=== PATIENT | female | born 1970 | race Hispanic/Latino ===

== ENCOUNTER 2018-02-25 15:39 | Emergency (ER) | payer OTHER ==
[~2018-02-25] VITALS: Ht 152.4 cm; Wt 68.0 kg
[2018-02-25] MEDS ORDERED: ASPIRIN 81 MG CHEW TAB PO ONE (16:00)
[2018-02-25 16:04] LABS: BASOPHILS # (AUTO) 0.1 (0.0-0.1); BASOPHILS % 0.9 % (0.0-1.0); EOSINOPHILS # (AUTO) 0.3 (0.0-0.4); EOSINOPHILS % 2.3 % (0.0-6.0); HEMOGLOBIN 12.4 g/dL (12.0-16.0); LYMPHOCYTES # (AUTO) 2.7 (1.0-3.2); LYMPHOCYTES % 22.6 % (18.0-39.1); MEAN CORPUSCULAR HEMOGLOBIN 28.5 pg (28-32); MEAN CORPUSCULAR HGB CONC 33.5 g/dL (31-35); MEAN CORPUSCULAR VOLUME 85.1 fL (81-99); MONOCYTES # (AUTO) 0.7 (0.2-0.8); MONOCYTES % 5.4 % (4.4-11.3); NEUTROPHILS # (AUTO) 8.2 (2.1-6.9); PLATELET COUNT 369 x10e3/uL (140-360); RED BLOOD COUNT 4.35 x10e6/uL (3.6-5.1); RED CELL DISTRIBUTION WIDTH 13.9 % (11.7-14.4)
[2018-02-25 16:14] LABS: INR 1.06
[2018-02-25 16:21] LABS: ALANINE AMINOTRANSFERASE 21 IU/L (0-55); ALBUMIN 3.9 g/dL (3.5-5.0); ALKALINE PHOSPHATASE 70 IU/L (40-150); ANION GAP 13.5 mmol/L (8-16); BLOOD UREA NITROGEN 9 mg/dL (7-26); BUN/CREATININE RATIO 12 (6-25); CALCIUM 9.3 mg/dL (8.4-10.2); CARBON DIOXIDE 22 mmol/L (22-29); CHLORIDE 106 mmol/L (98-107); CREATINE KINASE 147 IU/L (29-168); CREATININE, SERUM 0.76 mg/dL (0.57-1.11); EST GLOMERULAR FILTRATION RATE > 60 ML/MIN (60-); GLUCOSE 100 mg/dL (74-118); POTASSIUM 3.5 mmol/L (3.5-5.1); SODIUM 138 mmol/L (136-145)
--- NOTE | 2018-02-25 17:35 | Diagnostic Imaging Report ---
PROCEDURE: A single AP view of the chest. COMPARISON: None. INDICATIONS: CHEST PAIN FINDINGS: Lines/tubes: None. Lungs: The lungs are well inflated and clear. There is no evidence of pneumonia or pulmonary edema. Pleura: There is no pleural effusion or pneumothorax. Heart and mediastinum: The heart and the mediastinum are unremarkable. Bones: No acute bony abnormality. IMPRESSION: 1. No acute cardiopulmonary disease. Dictated by: Moises Birmingham M.D. on 02/25/2018 at 17:41 Electronically approved by: Moises Birmingham M.D. on 02/25/2018 at 17:41
[2018-02-25 18:17] LABS: CLARITY,URINE CLEAR (CLEAR); COLOR,URINE YELLOW (YELLOW)
[2018-02-25 18:18] LABS: BILIRUBIN,URINE NEGATIVE (NEGATIVE); KETONES,URINE NEGATIVE (NEGATIVE); LEUKOCYTE ESTERASE ,URINE NEGATIVE (NEGATIVE); NITRITE,URINE NEGATIVE (NEGATIVE); PROTEIN,URINE DIPSTICK NEGATIVE (NEGATIVE); URINE UROBILINOGEN 0.2 mg/dL (0.2 - 1)
[2018-02-25 18:26] LABS: EPITHELIAL CELLS,URINE FEW /LPF; MUCUS,URINE FEW (RARE); RBC,URINE 0-5 /HPF (0-5); WBC,URINE (MAN) 0-5 /HPF (0-5)
[2018-02-25] MEDS ORDERED: DIPHENHYDRAMINE HCL 25 MG CAP PO PRN (18:30)
[2018-02-25] MEDS ORDERED: DIPHENHYDRAMINE HCL INJ 50 MG/ML VIAL IV PRN (18:30)
[2018-02-25] MEDS ORDERED: ACETAMINOPHEN 325 MG TAB PO PRN (18:30)
[2018-02-25] MEDS ORDERED: ZOLPIDEM TARTRATE 5 MG TAB PO PRN (18:30)
[2018-02-25] MEDS ORDERED: PROMETHAZINE HCL (IM) 25 MG/ML VIAL IV PRN (18:30)
[2018-02-25] MEDS ORDERED: ONDANSETRON HCL INJ 2 MG/ML VIAL IV PRN (18:30)
[2018-02-25] MEDS ORDERED: FAMOTIDINE 20 MG/2 ML VIAL IV SCH (18:30)
[2018-02-25] MEDS ORDERED: MORPHINE SULFATE 2 MG/ML SYR IV PRN (18:30)
--- NOTE | 2018-02-25 21:07 | History and Physical ---
CHIEF COMPLAINT: F[age]-old female with no past medical history, comes with chest pain. HISTORY OF PRESENTING ILLNESS: This is Ms. Leonie Doe, who is a 47-year-old female, was in usual state of health until 2 days prior to admission the patient noticed to have some left-sided chest pain radiating to the back, and described as 6/10 in intensity, sharp in pain. The patient does not have any diagonal radiation or any variation of that pain, comes and goes, and increased sometimes with cough. PAST MEDICAL HISTORY: Noncontributory. SURGICAL HISTORY: History of removal of a uterine cyst, otherwise normal. MEDICATIONS: She does not take any medications. SOCIAL HISTORY: No ETOH, no IV drug abuse. 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 REVIEW OF SYSTEMS: Positive for chest pain. No shortness of breath. No nausea, vomiting, diarrhea. No constipation. No rectal bleeding. No hematochezia, no hematemesis. No diplopia. No blurry vision. PHYSICAL EXAMINATION: GENERAL: Patient is alert and oriented x3. VITAL SIGNS: Temperature is 98.3, pulse of 94, respiration of 18, blood pressure is 158/94 which has come down to 133/84. HEENT: Normocephalic, atraumatic. Pupils react to light and accommodation. CVS: S1 and S2 normal. Regular rate and rhythm. ABDOMEN: Nontender, nondistended. EXTREMITIES: No clubbing, no cyanosis, no edema. CHEST: Anterior chest wall pain is reproducible on palpation. LABORATORY VALUES: Sodium is 138, potassium of 3.5, BUN of 9, creatinine of 0.6. Troponin was less than 0.01. BNP was 19.9. Hematology: White count is 12,000 with the platelet count of 369,000, neutrophil of 8.2. Coags were normal. Urine showed few mucus and negative leuk esterase and no bacteria. Chest x-ray, again there was no acute cardiopulmonary disease. ASSESSMENT: Chest pain, more likely noncardiac in nature. Will go ahead and do a computerized tomography of the lungs with contrast just to rule out any lung pathology secondary to a cough. Will continue monitoring and trending her troponins. Possible discharge tomorrow morning. Further recommendation as an outpatient. For right now, will keep her for observation and trend her troponins and check her laboratories in the morning. Job#: [id number]
--- NOTE | 2018-02-25 22:27 | Diagnostic Imaging Report ---
EXAM: CT Chest WITH contrast 02/25/2018 8:09 PM INDICATION: Chest pain COMPARISON: None TECHNIQUE: Chest was scanned utilizing a multidetector helical scanner from the lung apex through the level of the adrenal glands without administration of IV contrast. Coronal and sagittal reformations were obtained. PE protocol was performed. IV CONTRAST: 100 and mL of Isovue-370 RADIATION DOSE: Total DLP: 601.96 mGy*cm Estimated effective dose: (DLP x 0.014 x size factor) mSv COMPLICATIONS: None FINDINGS: LINES/ TUBES: None. LUNGS AND AIRWAYS: There are minimal bibasilar atelectasis. Airways are normal. PLEURA: The pleural spaces are clear. HEART AND MEDIASTINUM: The thyroid gland is normal. No mediastinal, hilar or axillary lymphadenopathy. The heart is normal in size.. There is no pericardial effusion. UPPER ABDOMEN: Limited non-contrast views of the upper abdomen show no abnormality within the visualized liver, spleen, pancreas, or kidneys. The adrenal glands are normal. BONES: The visualized bony thorax is within normal limits. SOFT TISSUES: Unremarkable. IMPRESSION: 1. No evidence of acute intrathoracic abnormality. 2. No evidence of pulmonary embolism. Signed by: Dr. Michael Bustillo M.D. on 02/25/2018 10:24 PM
--- NOTE | 2018-02-25 22:35 | Consultation ---
DATE OF CONSULTATION: February 25, 2018 CARDIAC CONSULTATION REASON FOR CONSULTATION: Chest pain. HISTORY OF PRESENT ILLNESS: Ms. Doe is a 47-year-old lady with no significant past medical history, who presents to this institution with ongoing sharp left parasternal chest pain. Patient reports she has noticed this pain that started approximately 3 months ago; however, has progressed over the last week, where she had off and on and finally, became constant earlier today, which highly concerned her. She reports the pain is a left parasternal chest pain stabbing sensation, [id number] in nature, exacerbated when she takes a deep breath and with radiation starting today to the left back and scapular region. She reports taking a deep breath in perhaps makes the pain worse, but definitely does not notice any association with positions or meals. She feels that the pain is not related to exertion. We had a long discussion in terms of differential diagnosis. Patient denies any trauma and denies any heavy lifting. She does report couple of episodes of recent travel to [place], but this was back in January. PAST MEDICAL HISTORY: None. PAST SURGICAL HISTORY: History of cyst surgery in the uterus back in 2013. FAMILY HISTORY: Mother alive at 89, has diabetes. Father alive at 90 with "minor heart blockages". SOCIAL HISTORY: She is a lifelong nonsmoker, has an occasional alcohol use. Denies any illicit drug use. ALLERGIES: PENICILLIN. HOME MEDICATIONS: Does not take on a regular basis. REVIEW OF SYSTEMS GENERAL: Has occasional headaches. HEENT: Has occasional right earache and frequent wax in her ear. No ringing, sore throat, stuffy nose. RESPIRATORY: Denies any shortness of breath. Chest pain as per HPI. CARDIOVASCULAR: As per HPI. Denies any orthopnea, PND, syncope or near-syncope. GI: Denies any abdominal pain, bright red blood per rectum, melena, hematemesis. : Denies any dysuria, pyuria or change in urinary frequency. MUSCULOSKELETAL: Denies any leg swelling, leg pain, cramping. PERIPHERAL VASCULAR: Denies any typical claudication symptoms. ENDOCRINE: Denies any heat or cold intolerance. NEUROLOGIC: Denies any focal weakness, numbness, tingling, seizures, TIA or stroke history. PSYCH: Denies any anxiety or hallucinations. PHYSICAL EXAM VITALS: Height is 60 inches, weight 150 lbs, BMI is 29.3, temperature of 98.3, pulse of 94, respiratory rate of 18, blood pressure is 158/94, O2 sat 99% on room air. GENERAL: This is a well-developed, well-nourished lady, who is currently in no apparent distress. HEENT: Pupils equal, round, and reactive to light. Extraocular movements are intact. Oropharynx is clear. NECK: No elevation of jugular venous pulsation. No carotid bruits. CARDIOVASCULAR: Regular rate and rhythm. Normal S1, S2. Soft 1/6 systolic murmur in left lower sternal border. LUNGS: Clear to auscultation bilaterally with good air entry. There is some slight left parasternal upper chest wall tenderness to palpation. ABDOMEN: Soft, nontender, nondistended with normoactive bowel sounds. No hepatosplenomegaly. BACK: No costovertebral angle tenderness. EXTREMITIES: Warm with 2+ bilateral radial pulses, 2+ femoral pulses, and 1+ pedal pulses. NEUROLOGIC: Cranial nerves II-XII are intact. Strength is 5/5 grossly nonfocal. PSYCH: Normal memory and speech. Appropriate affect. No anxiety or delusions. LABS: White count 12.1, hemoglobin is 12.4, hematocrit 37.0, platelets of 369,000. Sodium 138, potassium 3.5, chloride 106, bicarb 22, BUN 9, creatinine 0.76, glucose of 100. Calcium 9.3. AST 20, ALT 21, alk phos 70, total protein is 7.7, albumin of 3.9. BNP is 19.9, troponin is less than 0.001. INR is 1.06. UA is negative. Chest x-ray is negative. EKG reveals normal sinus rhythm with normal axis and no ST/T-wave changes concerning for ischemia. DIAGNOSES 1. Chest pain, here for rule out acute coronary syndrome. 2. Mild leukocytosis. 3. Overweight. PLANS/RECOMMENDATIONS 1. From a cardiovascular standpoint, in light of her chest pain symptoms, we can check an echocardiogram to look at her left ventricular function grossly. Assuming next enzyme is negative, we can do a TMT for ischemic risk stratification. 2. I have spoken with the PCP. Will go ahead and proceed with CT contrast of chest, which is good as we will rule out any major lung pathology such as pulmonary embolism, masses, etc, which are more likely causes of this patient's chest pain features. 3. Will just recommend aggressive risk factor modification and medical therapy. 4. Telemetry monitoring. 5. Will continue follow this patient with you. Thank you for this referral. Job#: [id number] CQ
[2018-02-26] MEDS ORDERED: IOPAMIDOL 370 MG/ML 200 ML INFUS..BTL INJ ONE (00:49)
[2018-02-26] MEDS ORDERED: SODIUM CHLORIDE 0.9% 50ML 50 ML ONE (00:49)
[2018-02-26 02:03] LABS: CREATINE KINASE 112 IU/L (29-168)
[2018-02-26 05:11] LABS: BASOPHILS # (AUTO) 0.1 (0.0-0.1); BASOPHILS % 0.9 % (0.0-1.0); EOSINOPHILS # (AUTO) 0.3 (0.0-0.4); EOSINOPHILS % 2.7 % (0.0-6.0); HEMATOCRIT 35.6 % (34.2-44.1); HEMOGLOBIN 11.9 g/dL (12.0-16.0); LYMPHOCYTES # (AUTO) 2.6 (1.0-3.2); LYMPHOCYTES % 25.9 % (18.0-39.1); MEAN CORPUSCULAR HEMOGLOBIN 28.9 pg (28-32); MEAN CORPUSCULAR HGB CONC 33.4 g/dL (31-35); MEAN CORPUSCULAR VOLUME 86.4 fL (81-99); MONOCYTES # (AUTO) 0.8 (0.2-0.8); MONOCYTES % 7.6 % (4.4-11.3); NEUTROPHILS # (AUTO) 6.3 (2.1-6.9); NEUTROPHILS % 62.2 % (38.7-80.0); PLATELET COUNT 341 x10e3/uL (140-360); RED BLOOD COUNT 4.12 x10e6/uL (3.6-5.1); RED CELL DISTRIBUTION WIDTH 14.2 % (11.7-14.4)
[2018-02-26 05:37] LABS: ANION GAP 11.6 mmol/L (8-16); BLOOD UREA NITROGEN 8 mg/dL (7-26); BUN/CREATININE RATIO 12 (6-25); CALCIUM 8.7 mg/dL (8.4-10.2); CARBON DIOXIDE 22 mmol/L (22-29); CHLORIDE 105 mmol/L (98-107); CREATININE, SERUM 0.68 mg/dL (0.57-1.11); EST GLOMERULAR FILTRATION RATE > 60 ML/MIN (60-); GLUCOSE 93 mg/dL (74-118); POTASSIUM 3.6 mmol/L (3.5-5.1); SODIUM 135 mmol/L (136-145)
[2018-02-26 05:46] LABS: CHOL/HDL RATIO 3.7 (3.0-3.6)
[2018-02-26] MEDS ORDERED: ASPIRIN 325 MG TAB EC PO SCH (09:00)
--- NOTE | 2018-02-26 13:43 | Cardiology Report ---
DATE OF STUDY: February 26, 2018 EXERCISE TREADMILL STRESS TEST INDICATIONS FOR STUDY: A 47-year-old lady with atypical chest pain for ischemic risk stratification. TECHNICAL DETAILS: After explaining the benefits, pros, and cons of exercise treadmill stress test explained to the patient, the patient agreed to proceed. The patient was brought to the stress lab where 12-lead EKG monitoring and blood pressure monitoring was obtained. She exercised on a Adalberto protocol going from a baseline heart rate of 73 beats per minute to a maximum of 155 beats per minute above our target heart rate of 148 beats per minute. She exercised for a total duration of 9 minutes and 24 seconds, and protocol was stopped on achievement of target heart rate and fatigue. Blood pressure went from a baseline of 98/67 up to 216/92, which is an appropriate hemodynamic response. Underlying EKG revealed normal sinus rhythm and normal axis. No ST-T wave changes. With exercise treadmill stress testing, there was no ischemic EKG changes or chest pain symptoms. CONCLUSIONS 1. Negative exercise treadmill stress test, low risk. 2. Good exercise tolerance exercising for 9 minutes and 24 seconds. 3. Findings of the stress test was explained to the patient, including limitations. Job#: [id number]
== END 2018-02-26 12:10 | disposition home or self-care (01) ==
LOC: ER 15:39 → ERHOLD 19:14 → UNDOADMOB 19:14
DX: R07.9 Chest pain, unspecified (principal); R06.09 Other forms of dyspnea
CPT/HCPCS: 36415; 71045; 71260; 80048; 80053; 80061; 81001; 81025; 82550; 82553; 83880; 84484; 85025; 85610; 85730; 93005; 93017; 99284; Q9967

== ENCOUNTER 2018-04-22 10:46 | Emergency (ER) | payer OTHER ==
[~2018-04-22] VITALS: Ht 152.4 cm; Wt 68.0 kg
[2018-04-22 11:20] LABS: BILIRUBIN,URINE NEGATIVE (NEGATIVE); CLARITY,URINE CLEAR (CLEAR); COLOR,URINE YELLOW (YELLOW); KETONES,URINE NEGATIVE (NEGATIVE); LEUKOCYTE ESTERASE ,URINE NEGATIVE (NEGATIVE); NITRITE,URINE NEGATIVE (NEGATIVE); PROTEIN,URINE DIPSTICK NEGATIVE (NEGATIVE); URINE UROBILINOGEN 0.2 mg/dL (0.2 - 1)
[2018-04-22 11:33] LABS: EPITHELIAL CELLS,URINE FEW /LPF; RBC,URINE 0-5 /HPF (0-5)
== END 2018-04-22 12:25 | disposition home or self-care (01) ==
LOC: ER 10:46
DX: R30.0 Dysuria (principal); R10.2 Pelvic and perineal pain; R10.30 Lower abdominal pain, unspecified
CPT/HCPCS: 81001; 81025; 87086; 99283

== ENCOUNTER 2019-08-22 19:45 | Emergency (ER) | payer OTHER ==
[~2019-08-22] VITALS: Ht 152.4 cm; Wt 68.0 kg
[2019-08-22 21:25] LABS: CLARITY,URINE CLEAR (CLEAR); COLOR,URINE YELLOW (YELLOW); LEUKOCYTE ESTERASE ,URINE NEGATIVE (NEGATIVE); NITRITE,URINE NEGATIVE (NEGATIVE); PROTEIN,URINE DIPSTICK NEGATIVE (NEGATIVE)
[2019-08-22 21:26] LABS: BILIRUBIN,URINE NEGATIVE (NEGATIVE); KETONES,URINE NEGATIVE (NEGATIVE); URINE UROBILINOGEN 0.2 mg/dL (0.2 - 1)
[2019-08-22 21:27] LABS: PREGNANCY TEST, URINE NEGATIVE (NEGATIVE)
[2019-08-22 21:32] LABS: BACTERIA,URINE RARE /HPF; EPITHELIAL CELLS,URINE FEW /LPF; RBC,URINE 0-5 /HPF (0-5); WBC,URINE (MAN) 0-5 /HPF (0-5)
[2019-08-22 22:51] VITALS: BP 110/79
== END 2019-08-22 22:52 | disposition home or self-care (01) ==
LOC: ER 19:45
DX: S39.012A Strain of muscle, fascia and tendon of lower back, initial encounter (principal); Z82.49 Family history of ischemic heart disease and other diseases of the circulatory system; Z88.0 Allergy status to penicillin
CPT/HCPCS: 81001; 81025; 99283